=== PATIENT | male | born 1980 | race Caucasian/White ===

== ENCOUNTER → 2016-04-02 | Outpatient (REF) | payer BC | LOC: M SFHCLERA 19:53 | PROVIDERS: ATTEND Physician Assistant | DX: R50.9 Fever, unspecified (principal) ==

== ENCOUNTER → 2017-05-13 | Outpatient (CLI) | payer BC ==
[2017-05-14 14:13] LABS: TESTOSTERONE FREE (DIRECT) 11.5 pg/mL (8.7-25.1)
== END ==
LOC: M LAB 08:57
DX: N52.9 Male erectile dysfunction, unspecified (principal); R68.82 Decreased libido
CPT/HCPCS: 84403

== ENCOUNTER → 2017-09-05 | Outpatient (CLI) | payer BC ==
[2017-09-07 00:05] LABS: TESTOSTERONE FREE (DIRECT) 13.6 pg/mL (8.7-25.1)
== END ==
LOC: M LAB 08:07
DX: R68.82 Decreased libido (principal)
CPT/HCPCS: 84403